=== PATIENT | male | born 1930 | race Caucasian/White ===

== ENCOUNTER 2017-11-22 10:48 | Inpatient (IN) | payer OTHER ==
--- NOTE | 2017-11-22 11:04 | PDOC ---
Attending Attestation - Resident Resident Name: EstebanValentinMarkie - ED Attending Attestation I have performed the following: I have examined & evaluated the patient, The case was reviewed & discussed with the resident, I agree w/resident's findings & plan, Exceptions are as noted - HPI HPI: 11/22/17 11:03 87y M everisaias pmhx presents by EMS for call for syncope. Upon arrival pts BGM was 177 by EMS, notes pt was a bit lethargic and not moving his R side. BP 160s sbp. upon arrival pt had R sided weakness of arms/legs, hemineglect of R side. - Physicial Exam PE: 11/22/17 11:26 Twelve-lead EKG was performed and reviewed by me. There is normal sinus rhythm with a normal rate. rate of 88 Left axis devaiation moderate volatge criteria fo LVH - Critical Care Time Total Critical Care Time: 45 Critical Care Statement: The care of this patient involved high complexity decision making to prevent further life threatening deterioration of the patient 's condition and/or to evaluate & treat vital organ system(s) failure or risk of failure. - Medical Decision Making 11/22/17 11:23 discussed with son Tom Plascencia - notes pt has been having difficulty with speech for a more than a month, and was referred to PMD by cosmo. per son, no recent surgeries, traumas the past 2 months unsure of pts meds, - will call Ayla rowland to see if we can get further info regarding his meds 11/22/17 11:41 case tanya Ochoa who is bedside evaluating the patient agree with manageent and recommends TPA CTA obtained due to suspected MCA stroke if +thrombos will transfer to [facility] NIHSS 17 11/22/17 12:15 pt was admisnstered bolus of tpa at 1148 his exam findings are improving, able to move his RUE and RLE,also word finding has improved a bit although he still has hemineglect (able to tell me number of fingers held up in front of him) case tanya cool agree with ICU admission Dr. Espinal aware, her BALL THREAD MACHINE TENDER here evaluating the pt Case discussed in detail with admitting physician including history, physical exam and ancillary studies. Admitting physician has assumed care for the patient, will follow all pending diagnostics and will complete the evaluation and treatment. NIH Stroke Scale - Last Known Well Date/Time & Onset Date Last Known Well: 11/22/17 Time Last Known Well: 10:15 - Initial Evaluation Level of consciousness: Alert Ask patient the month and their age: Answers both correctly (dysathric, unable to understand) Ask patient to open & close eyes; make fist and let go: Obeys both correctly Best gaze (horizontal eye movement): Forced deviation Visual field testing: No visual field loss (pt w hemineglect) Facial paresis (Show teeth/raise eyebrows/close eyes tight): Partial paralysis ( total or near paralysis of lower face) Motor Function: Left Arm: Normal Motor Function: Right Arm: No movement Motor Function: Left Leg: Normal (extends leg 30 degrees for 5 seconds without drift) Motor Function: Right Leg: No movement Limb Ataxia: No ataxia Sensory(Use pinprick test arms,legs,trunk,face/side to side): Severe to total sensory loss Best language (Describe picture, name items, read sentences): Severe aphasia Dysarthria (read several words): Near unintelligible or unable to speak Extinction and Inattention: Inattention or extinction bilaterally to one of the sensory modalities - Total Score NIH Stroke Scale Score: 19 tPA Exclusion Checklist 0-3hr - Time Elapsed Date last known well: 11/22/17 Time last known well: 10:15 Elaspsed time: 6 Day(s) and 22 Hour(s) and 9 Minutes - Thrombolytic Therapy Candidate Is the patient eligible for Thrombolytic Therapy?: Yes - Exclusion Criteria 0-3hr SBP greater than 185 or DBP greater than 110mmHg despite tx: No Recent IC/spinal surgery,head trauma or stroke w/in last 3mo: No Hx of previous IC hemorrhage, IC neoplasm, AVM or aneurysm: No Active internal bleeding: No Blding diathesis(low plt ct, inc PTT,INR>1.7 or use of NOAC): No Symptoms suggest subarachnoid hemorrhage: No CT demonstrates multilobar infarct(>1/3 cerebral hemiphere): No Arterial puncture at noncompressible site in previous 7 days: No Blood glucose concentration less than 50mg/dL (2.7mmol/L): No - Relative Exclusion Criteria 0-3h Life expectancy <1yr/severe co-morbid illness/WHITE SHOE EXAMINER on admit: No : No Patient/family refused: No Rapid improvement: No Stroke severity too mild: No
--- NOTE | 2017-11-22 11:04 | PDOC ---
History of Present Illness - History of Present Illness Initial Comments: 11/22/17 10:58 87 yo M with pmh who p/w R sided weakness, and R sided facial droop. 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 SBP 160 and BS 173 in route. No witnessed convulsions. Neighbors reported to EMS that patient typically ambulates w/out assistive device, but was found ambulating with walker this AM. Per EMS patient progressively weaker, upon arrival. Was able to partially ambulate following event, but now with complete R sided weakness. <Markie Orellana - Last Filed: 11/22/17 12:34> <Shubham Lambert - Last Filed: 11/22/17 12:41> - General Stated Complaint: CVA/TIA Time Seen by Provider: 11/22/17 10:51 Past History <Markie Orellana - Last Filed: 11/22/17 12:34> <Shubham Lambert - Last Filed: 11/22/17 12:41> - Past Medical History Allergies/Adverse Reactions: Allergies Allergy/AdvReac Type Severity Reaction Status Date / Time No Known Allergies Allergy Verified 11/22/17 11:14 Review of Systems - Review of Systems Comments:: 11/22/17 11:17 Unable to obtain d/t AMS. <Markie Orellana - Last Filed: 11/22/17 12:34> *Physical Exam - Physical Exam Comments: 11/22/17 11:03 GENERAL: Awake,and disoriented. HEAD: No signs of trauma, normocephalic, atraumatic EYES: PERRLA, EOMI, sclera anicteric. ENT: Pupils 3 mm BL, with corneal clouding. Auricles normal inspection, hearing grossly normal, nares patent, oropharynx clear without exudates. Moist mucosa NECK: Normal ROM, supple, no lymphadenopathy, JVD, or masses LUNGS: No distress, speaks full sentences, clear to auscultation bilaterally HEART: Regular rate and rhythm, normal S1 and S2, no murmurs, rubs or gallops, peripheral pulses normal and equal bilaterally. ABDOMEN: Soft, nontender, normoactive bowel sounds. No guarding, no rebound. No masses EXTREMITIES : Normal inspection, Normal range of motion, no edema. No clubbing or cyanosis. NEUROLOGICAL: Cranial nerves II through XII grossly intact. + Slurred speech and partial R sided/lower facial droop with drooping of R sided lateral commisure of mouth. Gait not assesed. 0/5 R sided upper motor strength. RLE 1/5 , retracts to pain. + Babinski reflex BL. LUE 4/5 and LLE 4/5. Patient neglecting left side. SKIN: Warm, Dry, normal turgor, no rashes or lesions noted <Markie Orellana - Last Filed: 11/22/17 12:34> - Vital Signs Last Vital Signs Temp Pulse Resp BP Pulse Ox 85 18 178/88 100 11/22/17 12:39 11/22/17 12:39 11/22/17 12:39 11/22/17 12:39 <Shubham Lambert - Last Filed: 11/22/17 12:41> NIH Stroke Scale - Last Known Well Date/Time & Onset Date Last Known Well: 11/22/17 Time Last Known Well: 10:15 - Initial Evaluation Level of consciousness: Alert Ask patient the month and their age: Answers both correctly Ask patient to open & close eyes; make fist and let go: Obeys both correctly Best gaze (horizontal eye movement): Forced deviation Visual field testing: No visual field loss (Patient has hemineglect) Facial paresis (Show teeth/raise eyebrows/close eyes tight): Partial paralysis ( total or near paralysis of lower face) Motor Function: Left Arm: Normal Motor Function: Right Arm: No movement Motor Function: Left Leg: Normal (extends leg 30 degrees for 5 seconds without drift) Motor Function: Right Leg: No movement Limb Ataxia: No ataxia Sensory(Use pinprick test arms,legs,trunk,face/side to side): Severe to total sensory loss Best language (Describe picture, name items, read sentences): Severe aphasia Dysarthria (read several words): Near unintelligible or unable to speak Extinction and Inattention: Inattention or extinction bilaterally to one of the sensory modalities - Total Score NIH Stroke Scale Score: 19 <Markie Orellana - Last Filed: 11/22/17 12:34> tPA Exclusion Checklist 0-3hr - Time Elapsed Date last known well: 11/22/17 Time last known well: 10:15 Elaspsed time: Day(s) and 2 Hour(s) and 19 Minutes - Thrombolytic Therapy Candidate Is the patient eligible for Thrombolytic Therapy?: Yes - Exclusion Criteria 0-3hr SBP greater than 185 or DBP greater than 110mmHg despite tx: No Recent IC/spinal surgery,head trauma or stroke w/in last 3mo: No Hx of previous IC hemorrhage, IC neoplasm, AVM or aneurysm: No Active internal bleeding: No Blding diathesis(low plt ct, inc PTT,INR>1.7 or use of NOAC): No Symptoms suggest subarachnoid hemorrhage: No CT demonstrates multilobar infarct(>1/3 cerebral hemiphere): No Arterial puncture at noncompressible site in previous 7 days: No Blood glucose concentration less than 50mg/dL (2.7mmol/L): No - Relative Exclusion Criteria 0-3h Life expectancy <1yr/severe co-morbid illness/BOARD MIXER TENDER on admit: No : No Patient/family refused: No Rapid improvement: No Stroke severity too mild: No Recent acute IA (w/in previous 3 months): No Seizure at onset with postictal residual neuro impairments: No Major surgery or serious trauma w/in previous 14 days: No Recent GI or hemorrhage (w/in previous 21 days): No <Markie Orellana - Last Filed: 11/22/17 12:34> Critical Care Time/MDM Note - Medical Decision Making Note: 11/22/17 11:05 87 yo M with pmh who BIBA R sided weakness, and R sided facial droop at approximately 1015 following syncopal event at around 1015 ([id number] call placed ). SBP 160 and BS 173 in route. No witnessed convulsions. Now with complete R sided hemiplegia, facial droop, and slurred speech. BP now 143/83. 11/22/17 11:19 ED Course: Per Medical Records at [facility]. 06/02-06/05/17 R hip surgery s /p fall R hip femoral neck fracture/ R hip hemiplasty at [facility]. Was treated with ASA, APAP, Morphine. PMD Dr. Archana Escalante 11/22/17 11:39 Dr. Kylie MC ([facility]) to come to ED. 11/22/17 11:42 NIHSS 19 11/22/17 11:48 Patient son and neighbor who witnessed event now at bedside. Pt. son states that patient has become progressively weak and has poor primary care f/u and consistently refuses medical care. Recently seen in opthamologist office for left eye cataract (11-13-17). Pt. neighbor states that patient became dysarthric with blank gaze and not responsive to questions while eating [employer] at approximately 1005 AM. Patient started slouching to right while sitting. Per Dr. Ochoa patient is candidate for tpa. 55 mg (0.9/kg) administered. 11/22/17 12:22 Patient clinical status improved. RUE and RLE now 3/5 and patient speech more coherent and able to follow specific commands, and write his name on paper. 11/22/17 12:31 Patient accepted to ICU. Dr. Jc. <Markie Orellana - Last Filed: 11/22/17 12:34> Discharge Disposition <Markie Orellana - Last Filed: 11/22/17 12:34> - Discharge Dispostion Decision to Admit order: Yes <Shubham Lambert - Last Filed: 11/22/17 12:41> - Diagnosis Cerebrovascular accident (CVA) Qualifiers: CVA mechanism: unspecified Qualified Code(s): I63.9 - Cerebral infarction, unspecified - Discharge Dispostion Condition at time of disposition: Critical
[2017-11-22 11:08] LABS: BASO % 0.4 % (0-2.0); HEMATOCRIT 43.4 % (35.4-49); HEMOGLOBIN 14.2 GM/dL (11.7-16.9); LYMPH % 30.5 % (8-40); MCH 30.8 pg (25.7-33.7); MCHC 32.7 g/dl (32.0-35.9); MEAN CELL VOLUME 94.2 fl (80-96); MEAN PLT VOLUME 8.3 fl (7.5-11.1); MONO % 5.5 % (3.8-10.2); NEUT % 62.6 % (42.8-82.8); PLATELET COUNT 274 K/MM3 (134-434); RBC 4.61 M/mm3 (4.00-5.60); RDW 14.9 % (11.9-15.9); WHITE BLOOD COUNT 6.7 K/mm3 (4.0-10.0)
[2017-11-22 11:12] LABS: INR 1.06 (0.82-1.09)
[2017-11-22] MEDS ORDERED: ALTEPLASE 100MG 100 MG IVPB ONE (11:32)
[2017-11-22] MEDS ORDERED: ALTEPLASE 100 MG VIAL IVPB STA ×2 (11:34→12:02)
[2017-11-22 11:35] LABS: ALBUMIN 3.3 g/dl (3.4-5.0); ALK PHOS 136 U/L (45-117); ANION GAP 12 (8-16); BILIRUBIN,TOTAL 0.5 mg/dL (0.2-1.0); BLOOD UREA NITROGEN 19 mg/dL (7-18); CHLORIDE 111 mmol/L (98-107); CHOLESTEROL 161 mg/dL (50-200); CO2 22 mmol/L (21-32); CREATININE 1.3 mg/dL (0.7-1.3); GLUCOSE,RANDOM 158 mg/dL (74-106); HDL CHOLESTEROL 64 mg/dL (40-60); POTASSIUM 3.8 mmol/L (3.5-5.1); SGOT/AST 16 U/L (15-37); SGPT/ALT 18 U/L (12-78); SODIUM 145 mmol/L (136-145); TOT PROT 6.6 g/dl (6.4-8.2); TRIGLYCERIDES 82 mg/dL (35-160)
[2017-11-22] MEDS: SODIUM CHLORIDE 1,000 ML IV SCH (13:00)
[2017-11-22 13:24] LABS: URINE APPEARANCE CLOUDY; URINE BILIRUBIN NEGATIVE (<2.0 mg/dL); URINE COLOR DKYELLOW; URINE GLUCOSE (UA) NEGATIVE (NEGATIVE); URINE KETONE NEGATIVE (NEGATIVE); URINE NITRITE NEGATIVE (NEGATIVE); URINE UROBILINOGEN NEGATIVE mg/dL (0.2-1.0)
[2017-11-22 13:29] LABS: URINE LEUK ESTERASE 3+ (NEGATIVE); URINE PROTEIN 2+ (NEGATIVE)
[2017-11-22 13:31] LABS: EPI CELLS RARE /HPF (FEW); URINE BACTERIA MODERATE /hpf (NONE SEEN)
--- NOTE | 2017-11-22 13:44 | CONSULT ---
Consultation: ICUL CONSULT HISTORY OF PRESENT ILLNESS: 87yo M with unknown PMHx who was BIBEMS due to acute onset neurological deficits. He was at a restaurant w/ his neighbor who stated all of a sudden the patient started "looking funny". He was slumped over and making nonsensical speech, prompting 911 call. He progressively developed RUE and RLE weakness with a R sided neglect and worsening R facial droop. On arrival his NIHSS was 19 , and BPs were in 160s. Head CT shows L sided occipital and thalamic infarcts ( likely old). CTA shows no obvious embolus. He received tPA at 61min after TLSW Patient examined in the ER, still talking nonsensical but much improvement in strength and gaze palsy. PMHx: Unknown (patient does not see doctors) Nonsmoker Nonalcoholic REVIEW OF SYSTEMS: Unable to obtain secondary to mental status PHYSICAL EXAMINATION Vital Signs Period Temp Pulse Resp BP Sys/Kay Pulse Ox Last 24 Hr 76-85 16-24 143-178/83-104 0-100 GEN: Awake alert, oriented x1 to person HEENT: PERRLA, gaze is deviating to the Left, able to correct. CV: S1, S2, RRR, no murmur LUNG: CTABL ABD: Soft, NT, ND MSK: No edema, no erythema NEURO: PERRLA, + L gaze deviation, able to correct +R facial droop RUE 4/5, LUE 5/5. Lower extremity 5/5 ASSESSMENT/PLAN: 87yo M with unknown PMHx who was BIBEMS due to acute onset R sided hemiparesis, R facial droop, and R hemineglect. Suspected CVA, treated w/ tPA with improvement # Suspected L sided CVA -- Pt arrived w/ R sided weakness, received tPA w/ significant improvement. Still has some R gaze palsy and nonsensical speech. Patient has no known PMHx, but likely has underlying HTN, admitting BPs were in 160s. After tPA, BPs q1hr, keep permissive HTN until 185/110 for 24 hrs. EKG shows no Afib. Obtain echo to r/o embolus. Carotid dopplers. ASA tomorrow. Start statin. Repeat CT head in 12 hrs # FEN/Ppx -- No IVF, NPO, SCDs # Dispo -- Admit to ICU to monitor BPs Stan Castanon MD PGY1 ICU Resident Visit type - Emergency Visit Emergency Visit: Yes ED Registration Date: 11/22/17 Care time: The patient presented to the Emergency Department on the above date and was hospitalized for further evaluation of their emergent condition. - New Patient This patient is new to me today: Yes Date on this admission: 11/22/17 - Critical Care Critical Care patient: Yes Total Critical Care Time (in minutes): 45 Critical Care Statement: The care of this patient involved high complexity decision making to prevent further life threatening deterioration of the patient 's condition and/or to evaluate & treat vital organ system(s) failure or risk of failure.
--- NOTE | 2017-11-22 15:05 | HP ---
Admitting History and Physical - Admission History of Present Illness: 11/22/17 10:58 87 yo M with pmh who p/w R sided weakness, and R sided facial droop. 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 SBP 160 and BS 173 in route. No witnessed convulsions. Neighbors reported to EMS that patient typically ambulates w/out assistive device, but was found ambulating with walker this AM. Per EMS patient progressively weaker, upon arrival. Was able to partially ambulate following event, but now with complete R sided weakness. History Source: Family Member, Friend, Medical Record Limitations to Obtaining History: Clinical Condition - Past Surgical History Past Surgical History: Yes: Joint Replacement - Smoking History Smoking history: Unknown if ever smoked Have you smoked in the past 12 months: No - Alcohol/Substance Use Hx Alcohol Use: No - Social History Usual Living Arrangement: Yes: Alone ADL: Support Services History of Recent Travel: No Home Medications - Allergies Allergies/Adverse Reactions: Allergies Allergy/AdvReac Type Severity Reaction Status Date / Time No Known Allergies Allergy Verified 11/22/17 11:14 - Home Medications Home Medications: Ambulatory Orders Unobtainable 11/22/17 Physical Examination Vital Signs: Vital Signs Temperature Pulse Rate 76 11/22/17 13:47 Respiratory Rate 16 11/22/17 13:47 Blood Pressure 164/83 11/22/17 13:47 O2 Sat by Pulse Oximetry (%) 100 11/22/17 13:47 Labs: CBC, BMP 11/22/17 10:58 11/22/17 10:58
--- NOTE | 2017-11-22 15:41 | PN ---
Teaching Attending Note Name of Resident: Stan Castanon ATTENDING PHYSICIAN STATEMENT I saw and evaluated the patient. I reviewed the resident's note and discussed the case with the resident. I agree with the resident's findings and plan as documented. SUBJECTIVE: 87 M, admitted via the ER due to acute onset of AMS and change in speech. Apparently he was with his neighbor at a restaurant and his neighbor noted he "looked funny" and his his speech became unintelligible and called 911. [address] head revealed old infarcts but no new acute process. Do to progressive Right sided weakness and facial droop and a HIHSS of 19, he received tPA. Apparent improvement in his neurologic exam by examining providers. CXR: Questionable infiltrate/atelectasis RUL Intake & Output 11/19/17 11/20/17 11/21/17 11/22/17 23:59 23:59 23:59 23:59 Weight 134 lb 7.712 oz Last Vital Signs Temp Pulse Resp BP Pulse Ox 97.9 F 75 16 164/98 100 11/22/17 15:25 11/22/17 15:25 11/22/17 15:25 11/22/17 15:25 11/22/17 15:25 Active Medications Sodium Chloride (Normal Saline -) 1,000 mls @ 42 mls/hr IV ASDIR KIMBERLY Last Admin: 11/22/17 13:00 Dose: 42 mls/hr GENERAL: Awake, NAD HEAD: No signs of trauma, normocephalic, atraumatic EYES: PERRLA, EOMI, sclera anicteric. ENT: Pupils 3 mm equal, corneal haziness NECK: Normal ROM, supple, no lymphadenopathy, JVD, or masses LUNGS: Clear to auscultation bilaterally HEART: Irregular ABDOMEN: Soft, nontender, normoactive bowel sounds. No guarding, no rebound. No masses EXTREMITIES : Normal inspection, Normal range of motion, no edema. No clubbing or cyanosis. NEUROLOGICAL: Mildly dysarthric speech, right lower facial droop, right weakness SKIN: Warm, Dry, normal turgor, no rashes or lesions noted Laboratory Results - last 24 hr 11/22/17 11/22/17 11/22/17 10:58 10:58 10:58 WBC 6.7 RBC 4.61 Hgb 14.2 Hct 43.4 MCV 94.2 MCH 30.8 MCHC 32.7 RDW 14.9 Plt Count 274 MPV 8.3 Neutrophils % 62.6 Lymphocytes % 30.5 Monocytes % 5.5 Eosinophils % 1.0 Basophils % 0.4 Nucleated RBC % 0 PT with INR 12.00 INR 1.06 Sodium 145 Potassium 3.8 Chloride 111 H Carbon Dioxide 22 Anion Gap 12 BUN 19 H Creatinine 1.3 Creat Clearance w eGFR 52.22 Random Glucose 158 H Calcium 9.0 Total Bilirubin 0.5 AST 16 ALT 18 Alkaline Phosphatase 136 H Creatine Kinase 33 L Troponin I < 0.02 Total Protein 6.6 Albumin 3.3 L Triglycerides 82 Cholesterol 161 Total LDL Cholesterol 85 HDL Cholesterol 64 H Urine Color Urine Appearance Urine pH Ur Specific [place] Urine Protein Urine Glucose (UA) Urine Ketones Urine Blood Urine Nitrite Urine Bilirubin Urine Urobilinogen Ur Leukocyte Esterase Urine WBC (Auto) Urine RBC (Auto) Ur Epithelial Cells Urine Bacteria Blood Type Antibody Screen 11/22/17 11/22/17 11:20 13:00 WBC RBC Hgb Hct MCV MCH MCHC RDW Plt Count MPV Neutrophils % Lymphocytes % Monocytes % Eosinophils % Basophils % Nucleated RBC % PT with INR INR Sodium Potassium Chloride Carbon Dioxide Anion Gap BUN Creatinine Creat Clearance w eGFR Random Glucose Calcium Total Bilirubin AST ALT Alkaline Phosphatase Creatine Kinase Troponin I Total Protein Albumin Triglycerides Cholesterol Total LDL Cholesterol HDL Cholesterol Urine Color Dkyellow Urine Appearance Cloudy Urine pH 5.0 Ur Specific [place] 1.040 H Urine Protein 2+ H Urine Glucose (UA) Negative Urine Ketones Negative Urine Blood 3+ H Urine Nitrite Negative Urine Bilirubin Negative Urine Urobilinogen Negative Ur Leukocyte Esterase 3+ H Urine WBC (Auto) 73 Urine RBC (Auto) 1509 Ur Epithelial Cells Rare Urine Bacteria Moderate Blood Type O POSITIVE Antibody Screen Negative ASSESSMENT/PLAN: Acute Left CVA, S/P tPA HTN AFib Prosthetic Valve Monitor for bleeding HOB elevation SCDs No arterial punctures ASA to be started Statin ECHO Carotid dopplers Follow CXR Monitor off ABX for now Neurology evaluation Blood Pressure goal in first 24 hours: Maintain below 180/105. ICU monitoring Dr Snowden Critical care time spent in reviewing chart, evaluating patient and formulating plan - 36 minutes.
[2017-11-22 16:09] VITALS: BMI 27.3
--- NOTE | 2017-11-22 16:18 | CON.NEURO ---
Consult - Past Surgical History Past Surgical History: Yes: Joint Replacement - Alcohol/Substance Use Hx Alcohol Use: No - Smoking History Smoking history: Unknown if ever smoked Have you smoked in the past 12 months: No - Social History ADL: Support Services History of Recent Travel: No Home Medications - Allergies Allergies/Adverse Reactions: Allergies Allergy/AdvReac Type Severity Reaction Status Date / Time No Known Allergies Allergy Verified 11/22/17 11:14 - Home Medications Home Medications: Ambulatory Orders Unobtainable 11/22/17 Physical Exam-Neuro Vital Signs: Vital Signs Temperature 97.9 F 11/22/17 15:25 Pulse Rate 75 11/22/17 15:25 Respiratory Rate 16 11/22/17 15:25 Blood Pressure 164/98 11/22/17 15:25 O2 Sat by Pulse Oximetry (%) 100 11/22/17 15:25 Labs: CBC, BMP 11/22/17 10:58 11/22/17 10:58 INR, PTT INR 1.06 (0.82-1.09) 11/22/17 10:58 Assessment/Plan cc sudden onset right side hemiparesis, neglect and aphasia HPI 87 year old male was eating at [employer] and was found to have aphasia, and right sided hemiparesis around 10.00 am and Patient was immediately brought to hospital. He has ct scan was normal. NIH score as 19, BP wa sin 160s . Patient blood sugar was 173. He has cta of brain was unremarkkable. Patient as started on tpa at 11.50 am. I spent 30 minute doing critical care. He has history of Joint replacement, He was not on any anticoagulation . He did not have any recent surgery or brain injury , reviewed in chart NKDA Neurological Examination bp 178/88 Alert able to follow simple command eyes are conjugate deviated to left side, there is right side hemineglect , right sided completely paralysis right facial palsy ct head unremarkable Assessment- Large left mca stroke with aphasia , conjugate eye deviation and hemiparesis, nih score is 19, failed swallowing evaluation Plan-- TPA was given on 11.50, - ICU care, hold antiplatelet for 24 hour - aspirin can be started tomorrow -Statin can be started -repeat ct head tomorrow - vitals as per ICU team - Carotid ultrasound, echo -Neurocheck - repeat ct head, if any new focal neurological symptoms or sign -prognosis is guarded dvt prophylaxis, speech evaluation, PT Thanking you so much Barrett Ochoa MD
[2017-11-22] MEDS: ATORVASTATIN CA 80 MG TABLET (FP) PO SCH (21:27)
[2017-11-23 06:42] LABS: HEMATOCRIT 39.3 % (35.4-49); HEMOGLOBIN 13.3 GM/dL (11.7-16.9); MCHC 33.7 g/dl (32.0-35.9); MEAN CELL VOLUME 91.8 fl (80-96); MEAN PLT VOLUME 8.3 fl (7.5-11.1); PLATELET COUNT 264 K/MM3 (134-434); RBC 4.28 M/mm3 (4.00-5.60); RDW 14.5 % (11.9-15.9); WHITE BLOOD COUNT 7.5 K/mm3 (4.0-10.0)
[2017-11-23 07:01] LABS: INR 1.05 (0.82-1.09); PROTHROMBIN TIME (PATIENT) 11.9 SEC (9.7-13.0)
[2017-11-23 07:17] LABS: ALBUMIN 2.9 g/dl (3.4-5.0); ANION GAP 4 (8-16); BLOOD UREA NITROGEN 13 mg/dL (7-18); CALCIUM 8.4 mg/dL (8.5-10.1); CHLORIDE 112 mmol/L (98-107); CO2 27 mmol/L (21-32); GLUCOSE,RANDOM 70 mg/dL (74-106); POTASSIUM 4.1 mmol/L (3.5-5.1); SODIUM 143 mmol/L (136-145)
[2017-11-23 07:30] LABS: ALK PHOS 117 U/L (45-117); BILIRUBIN,TOTAL 0.7 mg/dL (0.2-1.0); MAGNESIUM 2.1 mg/dL (1.8-2.4); PHOSPHOROUS 3.8 mg/dL (2.5-4.9); SGOT/AST 15 U/L (15-37); SGPT/ALT 14 U/L (12-78); TOT PROT 5.8 g/dl (6.4-8.2)
[2017-11-23 07:41] LABS: CHOLESTEROL 140 mg/dL (50-200); HDL CHOLESTEROL 57 mg/dL (40-60); TRIGLYCERIDES 84 mg/dL (35-160)
--- NOTE | 2017-11-23 08:53 | EKG ---
Test Reason : Blood Pressure : / mmHG Vent. Rate : 088 BPM Atrial Rate : 088 BPM P-R Int : 150 ms QRS Dur : 082 ms QT Int : 358 ms P-R-T Axes : 044 -32 026 degrees QTc Int : 433 ms SINUS RHYTHM WITH PREMATURE ATRIAL COMPLEXES LEFT AXIS DEVIATION MODERATE VOLTAGE CRITERIA FOR LVH, MAY BE NORMAL VARIANT ABNORMAL ECG NO PREVIOUS ECGS AVAILABLE Confirmed by MYRANDA MCKEON, RUMA ([id number]) on 11/23/2017 8:52:54 AM Referred By: Confirmed By:RUMA WHITMORE MD
[2017-11-23] MEDS ORDERED: ASPIRIN 81 MG CHEWABLE TABLETS PO SCH ×2 (10:00→12:00)
[2017-11-23] MEDS: SODIUM CHLORIDE 1,000 ML IV SCH (12:30)
[2017-11-23] MEDS: ASPIRIN 81 MG CHEWABLE TABLETS PO SCH (12:51)
--- NOTE | 2017-11-23 13:33 | PN ---
Progress Note (short form) - Note Progress Note: 87 year old male was eating at [employer] and was found to have aphasia, and right sided hemiparesis around 10.00 am on november 22, 2017 and Patient was immediately brought to hospital. He has ct scan was normal. NIH score as 19, BP wa sin 160s . Patient blood sugar was 173. He has cta of brain was unremarkkable. Patient as started on tpa at 11.50 am. Patient has improved after iv tpa. Neurological Examination bp 170/94 Alert able to follow simple command eomi, pupils reactive Right sided grade 4 in both upper and lower extremity. 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 Thanking you so much Barrett Ochoa MD
--- NOTE | 2017-11-23 13:46 | PN ---
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 Vital Signs Period Temp Pulse Resp BP Sys/Kay Pulse Ox Last 24 Hr 97.2 F-98.2 F 59-84 7-24 140-184/80-105 100-100 Intake & Output 11/20/17 11/21/17 11/22/17 11/23/17 23:59 23:59 23:59 23:59 Intake Total 168 336 Output Total 1200 200 Balance -1032 136 Weight 154 lb face minimal right labial droop speech garbled but not slurred follows SIMPLE COMMAND - neckk supple heart s1/s2v reg lungs clear bilat abd soft non tender ext moves all / FROM / no significant motor deficit CBC, BMP 11/23/17 05:30 11/23/17 05:[address] head done on was unchanged from 11/22/17 carotid ultrasound is pending Microbiology 11/22/17 13:15 Urine - Urine - Catheterized Urine Culture - Preliminary Lactose Fermenting Neg Bacilli Active Medications Aspirin (Asa -) [address] [facility] Last Admin: 11/23/17 12:51 Dose: 81 mg Atorvastatin Calcium (Lipitor -) 80 mg PO HS [facility] Last Admin: 11/22/17 21:27 Dose: 80 mg Sodium Chloride (Normal Saline -) 1,000 mls @ 42 mls/hr IV ASDIR 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
[2017-11-23] MEDS: ATORVASTATIN CA 80 MG TABLET (FP) PO SCH (21:34)
--- NOTE | 2017-11-24 09:56 | PN ---
Progress Note (short form) - Note Progress Note: PULMONARY/CCM Pt seen and examined in the ICU. Still some aphasia but improving. Denies headache, nausea or vomiting. Vital Signs Period Temp Pulse Resp BP Sys/Kay Pulse Ox Last 24 Hr 98.2 F-98.8 F 55-78 16-22 127-170/61-93 100 Intake & Output 11/21/17 11/22/17 11/23/17 11/24/17 23:59 23:59 23:59 23:59 Intake Total 168 1218 500 Output Total 1200 950 370 Balance -1032 268 130 Weight 69.853 kg 69.853 kg 40.1 kg Gen: mild word finding Heart: RRR Lung: decreased breath sounds at the bases Abd: soft, nontender Ext: no edema CBC, BMP 11/23/17 05:30 11/23/17 05:30 Active Medications Aspirin (Asa -) 81 mg PO DAILY [facility] Last Admin: 11/23/17 12:51 Dose: 81 mg Atorvastatin Calcium (Lipitor -) 80 mg PO HS [facility] Last Admin: 11/23/17 21:34 Dose: 80 mg Sodium Chloride (Normal Saline -) 1,000 mls @ 42 mls/hr IV [facility] Last Admin: 11/23/17 12:30 Dose: 42 mls/hr A/P Acute CVA s/p tPA - neuro checks - MRI brain - echocardiogram - statin - PO as tolerated - can d/c IVF - rehab/PT - can monitor on telemetry
[2017-11-24] MEDS: ASPIRIN 81 MG CHEWABLE TABLETS PO SCH (10:06)
--- NOTE | 2017-11-24 10:13 | PN ---
Progress Note (short form) - Note Progress Note: 87 year old male was eating at [employer] and was found to have aphasia, and right sided hemiparesis around 10.00 am on november 22, 2017 and Patient was immediately brought to hospital. He has ct scan was normal. NIH score as 19, BP wa sin 160s . Patient blood sugar was 173. He has cta of brain was unremarkkable. Patient was given tpa in ED. No new complain, he was made to walk today Neurological Examination bp 170/94 Alert able to follow simple command eomi, pupils reactive Right sided grade 4 in both upper and lower extremity. 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 Thanking you so much Barrett Ochoa MD
--- NOTE | 2017-11-24 13:53 | PN ---
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 Vital Signs Period Temp Pulse Resp BP Sys/Kay Pulse Ox Last 24 Hr 97.8 F-98.8 F 55-74 18-22 127-155/61-90 100 Intake & Output 11/21/17 11/22/17 11/23/17 11/24/17 23:59 23:59 23:59 23:59 Intake Total 168 1218 500 Output Total 1200 950 370 Balance -1032 268 130 Weight 154 lb 154 lb 88 lb 6.486 oz face minimal right labial droop speech clear / slow, episodes of garbled speech follows SIMPLE COMMAND - neckk supple heart s1/s2v reg lungs clear bilat abd soft non tender ext moves all / FROM / no significant motor deficit CBC, BMP 11/23/17 05:30 11/23/17 05:[address] head done on was unchanged from 11/22/17 carotid ultrasound is pending Microbiology 11/22/17 13:15 Urine - Urine - Catheterized Urine Culture - Preliminary Lactose Fermenting Neg Bacilli Active Medications Aspirin (Asa -) 81 mg PO DAILY [facility] Last Admin: 11/24/17 10:06 Dose: 81 mg Atorvastatin Calcium (Lipitor -) 80 mg PO HS [facility] Last Admin: 11/23/17 21:34 Dose: 80 mg Assessment- # CVA 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
[2017-11-25 06:42] LABS: BASO % 0.3 % (0-2.0); HEMATOCRIT 39.4 % (35.4-49); HEMOGLOBIN 13.4 GM/dL (11.7-16.9); LYMPH % 38.1 % (8-40); MCHC 33.9 g/dl (32.0-35.9); MEAN CELL VOLUME 91.4 fl (80-96); MEAN PLT VOLUME 8.1 fl (7.5-11.1); MONO % 7.2 % (3.8-10.2); NEUT % 47.4 % (42.8-82.8); PLATELET COUNT 265 K/MM3 (134-434); RBC 4.31 M/mm3 (4.00-5.60); RDW 14.1 % (11.9-15.9); WHITE BLOOD COUNT 6.7 K/mm3 (4.0-10.0)
[2017-11-25 07:11] LABS: CHLORIDE 112 mmol/L (98-107); POTASSIUM 4.4 mmol/L (3.5-5.1); SODIUM 145 mmol/L (136-145)
[2017-11-25 07:19] LABS: ALBUMIN 2.9 g/dl (3.4-5.0); ALK PHOS 112 U/L (45-117); ANION GAP 5 (8-16); BILIRUBIN,TOTAL 0.5 mg/dL (0.2-1.0); BLOOD UREA NITROGEN 21 mg/dL (7-18); CALCIUM 8.4 mg/dL (8.5-10.1); CO2 28 mmol/L (21-32); GLUCOSE,RANDOM 79 mg/dL (74-106); MAGNESIUM 2.3 mg/dL (1.8-2.4); PHOSPHOROUS 3.4 mg/dL (2.5-4.9); SGOT/AST 11 U/L (15-37); SGPT/ALT 12 U/L (12-78); TOT PROT 5.8 g/dl (6.4-8.2)
--- NOTE | 2017-11-25 09:14 | PN ---
Progress Note (short form) - Note Progress Note: PULMONARY/CCM Pt seen and examined in the ICU. Still with word finding/aphasia. Tolerating PO. Denies headache, nausea or vomiting. Vital Signs Period Temp Pulse Resp BP Sys/Kay Pulse Ox Last 24 Hr 97.8 F-98.3 F 64-84 18-24 129-157/68-98 100-100 Intake & Output 11/22/17 11/23/17 11/24/17 11/25/17 23:59 23:59 23:59 23:59 Intake Total 168 1218 1260 Output Total 1200 950 970 Balance -1032 268 290 Weight 69.853 kg 69.853 kg 40.1 kg Gen: mild word finding Heart: RRR Lung: decreased breath sounds at the bases Abd: soft, nontender Ext: no edema CBC, BMP 11/25/17 05:40 11/25/17 05:40 A/P Acute CVA s/p tPA HTN - neuro checks - MRI brain - echocardiogram - statin - PO as tolerated - rehab/PT - telemetry monitoring
--- NOTE | 2017-11-25 11:22 | PN ---
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 Vital Signs Period Temp Pulse Resp BP Sys/Aky Pulse Ox Last 24 Hr 98.0 F-98.3 F 64-84 18-24 129-157/68-98 100-100 Intake & Output 11/22/17 11/23/17 11/24/17 11/25/17 23:59 23:59 23:59 23:59 Intake Total 168 1218 1260 Output Total 1200 950 970 Balance -1032 268 290 Weight 154 lb 154 lb 88 lb 6.486 oz face minimal right labial droop speech clear / slow, episodes of garbled speech follows SIMPLE COMMAND - neckk supple heart s1/s2v reg lungs clear bilat abd soft non tender ext moves all / FROM / no significant motor deficit CBC, BMP 11/25/17 05:40 11/25/17 05:[address] head done on was unchanged from 11/22/17 carotid ultrasound is pending Microbiology 11/22/17 13:15 Urine - Urine - Catheterized Urine Culture - Final Escherichia Coli Aspirin (Asa -) 81 mg PO DAILY [facility] Last Admin: 11/24/17 10:06 Dose: 81 mg Atorvastatin Calcium (Lipitor -) 80 mg PO HS [facility] Last Admin: 11/23/17 21:34 Dose: 80 mg Assessment- # CVA 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
--- NOTE | 2017-11-25 16:57 | PN ---
Progress Note (short form) - Note Progress Note: 87 year old male developed sudden onset aphasia and right sided hemiparesis around 10.00 am on november 22, 2017 and Patient was immediately brought to hospital. He has ct scan was normal. NIH score was 19, B. He has cta of brain was unremarkkable. Patient was given tpa in ED. His strength seems to have improved and speech is better. He still having trouble with word findings difficulty Neurological Examination = Alert able to follow simple command eomi, pupils reactive , riht sided hemianopsia Right sided grade 4 in both upper and lower extremity. 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
--- NOTE | 2017-11-26 09:38 | CONSULT ---
Admitting History and Physical - Primary Care Physician PCP: Archana Espinal I - Admission History of Present Illness: 87yo M with unknown PMHx who was BIBEMS due to acute onset neurological deficits. He was at a restaurant w/ his neighbor who stated all of a sudden the patient started "looking funny". He was slumped over and making nonsensical speech, prompting 911 call. He progressively developed RUE and RLE weakness with a R sided neglect and worsening R facial droop. CT head revealed old infarcts but no new acute process. Do to progressive Right sided weakness and facial droop and a HIHSS of 19, he received tPA. 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 He also told me that he did have a h/o word finding difficulty before this admission but denied known h/o of a stroke. Pt is left hand dominant. History Source: Patient, Medical Record Limitations to Obtaining History: Clinical Condition, Other (Expressive Aphasia) - Past Surgical History Past Surgical History: Yes: Joint Replacement - Smoking History Smoking history: Unknown if ever smoked Have you smoked in the past 12 months: No - Alcohol/Substance Use Hx Alcohol Use: No - Social History ADL: Support Services History of Recent Travel: No History - Admission Reason For Visit: CVA - Diagnostics X-ray: Report Reviewed CT Scan: Report Reviewed MRI: Report Reviewed - General Mental Status: Alert and Oriented, Awake and Alert, Able to Follow Commands Attention: Intact Ability to Follow Directions: Good (Pt follows 2 step commands but not complex 3 step) Head/Neck Control: WFL - Hearing Hearing: Functional Speech Evaluation - Communication Primary Language: [place] Communication: Yes: Aphasia Oral Expression Ability: Yes: Moderate Impairment - Speech Production Apraxia: No Intelligibility: Yes: WNL - Speech Characteristics Voice Loudness: Normal Voice Pitch: Yes: Normal Voice Phonatory-based Quality: Yes: Normal Speech Pattern: Impaired Nasal Resonance: Normal Articulation: Yes: Precise - Language/Auditory Comprehension Follows: Yes: 2 Stage Simple Commands Observation: Able to respond to yes/no queries: Yes, Yes/No Confusion: No, Comprehends Conversational Speech: Yes, Benefits from Slow Speech: Yes, Benefits from Repetiton: Yes - Language/Verbal Expression Aphasia: Yes: Anomia Able to Respond to Simple Queries: Yes: Mildly Impaired, Moderately Impaired Able to Communicate Wants and Needs: Yes: Mildly Impaired, Moderately Impaired Functional Communication Status: Yes: Moderately Impaired Aware of Errors: Yes Attempts to Correct Errors: Yes Written Expression: Writing is poorly functional, unable to write his name. Errors in copying his name, but he can write letters. 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 Social speech and simple sentence production is much improved,per EMR. With cues, able to learn to circumlocute to get his point across. Poor confrontation naming, difficulty naming common objects. Limited ability to remember the word, eg spoon,after 1 minute with distraction. Reading Comprehension: Unable to reading single words,eg HELLO, with suspected right hemianopsia contributing. Attention: Yes: Intact - Memory/Perception exterminator Memory: Yes: WNL Short Term Memory: Yes: WNL Hemaniopsia: Yes: Right (noted during reading tasks. Unaware of right side of word eg read SUNDAY for Mu) - Swallow Evaluation/Bedside Assessment Current Nutritional Intake: Regular Oral Secretions: Yes: WFL Dentition: Yes: Adequate Facial Symmetry at Rest: Symmetrical Facial Symmetry on Retraction: Symmetrical Facial Movement: Controlled Sensation: Normal Against Resistance Opening: Normal Against Resistance Closing: Normal Pucker Lips: Normal Smile: Normal Lingual Movement: Normal, Symmetric Lingual Speed of Movement: Normal Lingual Movement Strgth Against Opposition: Normal Lingual Movement Characteristics: Normal Velopharyngeal Movement: Normal Laryngeal Elevation: WFL Laryngeal Movement: Able to Palpate Rate of Intake: WFL Bolus Size: WFL Labial Seal: WFL Chewing: WFL Oral Prep Time: WFL A-P Transit: WFL Pocketing: None Timing of Swallow: WFL Coughing/Throat Clear: No Change in Voice: No Recommendations - Speech Evaluation, Impression/Plan 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 Reading/Writing non functional at present.Pt seems fully oriented and I suspect his memory/reasoning is quite functional. No dysarthria/dysphagia. Excellent rehab candidate. Recommended Therapies: Language Recommended Frequency for Therapy: 3-5 x Week - Disposition Discharge to: Rehabilitation Center - Dysphagia Impressions/Plan Swallowing Skills: WFL Dysphagia Impressions: No Impairment *Silent aspiration: cannot be R/O at bedside - Recommendations Diet Consistency: Regular Medication Administration: Whole with water Liquids: Thin Liquids
--- NOTE | 2017-11-26 10:53 | PN ---
Progress Note (short form) - Note Progress Note: patient seen and examined in ICU sitting up in bed follows commands speech improved / short sentences was able to read short ( 3 word) sentences, unclear if understands what he is reading not oriented to time or place moves all extremities front desk equal strength Vital Signs Period Temp Pulse Resp BP Sys/Kay Pulse Ox Last 24 Hr 98.0 F-98.7 F 65-78 15-22 125-152/68-94 97 Intake & Output 11/23/17 11/24/17 11/25/17 11/26/17 23:59 23:59 23:59 23:59 Intake Total 1218 1260 240 240 Output Total 246 249 4673 400 Balance 268 290 -860 -160 Weight 154 lb 88 lb 6.486 oz 162 lb 1.6 oz face minimal right labial droop /symmetrical with speech speech clear / slow follows SIMPLE COMMAND - neck supple heart s1/s2v reg lungs clear bilat abd soft non tender ext moves all / FROM / no significant motor deficit CBC, BMP 11/25/17 05:40 11/25/17 05:[address] head done on was unchanged from 11/22/17 Microbiology 11/22/17 13:15 Urine - Urine - Catheterized Urine Culture - Final Escherichia Coli Aspirin (Asa -) 81 mg PO DAILY [facility] Last Admin: 11/24/17 10:06 Dose: 81 mg Atorvastatin Calcium (Lipitor -) 80 mg PO HS [facility] Last Admin: 11/23/17 21:34 Dose: 80 mg Assessment- # CVA 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
[2017-11-26] MEDS ORDERED: ASPIRIN 81 MG CHEWABLE TABLETS ONE (10:59)
--- NOTE | 2017-11-26 11:55 | PN ---
Progress Note (short form) - Note Progress Note: PULMONARY/CCM Still with some aphasia. Tolerating PO. Denies headache, nausea or vomiting. Vital Signs Period Temp Pulse Resp BP Sys/Kay Pulse Ox Last 24 Hr 98.0 F-98.7 F 65-78 15-22 125-152/68-94 97 Gen: mild word finding Heart: RRR Lung: decreased breath sounds at the bases Abd: soft, nontender Ext: no edema CBC, BMP 11/25/17 05:40 11/25/17 05:40 Active Medications Aspirin (Ecotrin -) 81 mg PO DAILY [facility] Atorvastatin Calcium (Lipitor -) 80 mg PO HS [facility] Levofloxacin (Levaquin 250 Mg Premixed Ivpb -) 250 mg in 50 mls @ 50 mls/hr IVPB DAILY [facility]; Protocol Stop: 11/30/17 10:44 A/P Acute L MCA CVA s/p tPA UTI HTN - neuro checks - statin - continue antibiotics - PO as tolerated - rehab/PT - telemetry monitoring
[2017-11-26] MEDS: ASPIRIN COATED 81 MG TABLET.EC PO SCH (12:36)
--- NOTE | 2017-11-26 17:52 | CON.CARD ---
Consult Consult Specialty:: cardio - History of Present Illness Chief Complaint: stroke History of Present Illness: 87 male here with new neuro deficits, dx'd large left mca stroke with motor aphasia, mild right sided hemiparesis (see by dr rodriguez, neurology). s/p t-PA on ASA, statin. he remains with aphasia. he does not note any worsening of his neuro sx's. he denies palpitations, cp, sob here or at home PMH: none known (no medical f/u) no cigs - Past Surgical History Past Surgical History: Yes: Joint Replacement - Alcohol/Substance Use Hx Alcohol Use: No - Smoking History Smoking history: Unknown if ever smoked Have you smoked in the past 12 months: No - Social History ADL: Support Services History of Recent Travel: No Home Medications - Allergies Allergies/Adverse Reactions: Allergies Allergy/AdvReac Type Severity Reaction Status Date / Time No Known Allergies Allergy Verified 11/22/17 11:14 - Home Medications Home Medications: Ambulatory Orders Unobtainable 11/22/17 Family Disease History - Family Disease History Family History: Denies (no known cmp) Review of Systems - Review of Systems Constitutional: denies: Chills, Fever Eyes: denies: Eye Pain HENT: denies: Nasal Congestion Neck: denies: Stiffness Cardiovascular: denies: Palpitations Respiratory: denies: Orthopnea, PND Gastrointestinal: denies: Diarrhea, Rectal Bleeding Genitourinary: denies: Burning, Hematuria Musculoskeletal: denies: Muscle Pain Integumentary: denies: Rash Neurological: reports: Change in Speech, Weakness. denies: Numbness, Seizure, Syncope Endocrine: denies: Excessive Sweating Hematology/Lymphatic: denies: Excessive Bleeding Vital Signs: Vital Signs Temperature 98.4 F 11/26/17 14:00 Pulse Rate 78 11/26/17 16:00 Respiratory Rate 22 11/26/17 16:00 Blood Pressure 120/68 11/26/17 16:00 O2 Sat by Pulse Oximetry (%) 97 11/26/17 09:00 Constitutional: Yes: Well Nourished, No Distress Eyes: No: Sclera Icterus HENT: No: Nasal Congestion Neck: No: Decreased ROM Respiratory: Yes: CTA Bilaterally. No: Accessory Muscle Use, Rales, Wheezes Gastrointestinal: Yes: Normal Bowel Sounds. No: Distention, Hepatomegaly, Palpable Mass, Tenderness Cardiovascular: Yes: Regular Rate and Rhythm JVD: No Carotid Bruit: No PMI: Non-Displaced Heart Sounds: Yes: S1, S2. No: Gallop Murmur: No: Systolic Murmur, Diastolic Murmur Musculoskeletal: Yes: Other (No kyphosis) Extremities: No: Cold, Cyanosis Edema: No Peripheral Pulses: 2+ Left Carotid, 2+ Right Carotid, 2+ Left Doralis Pedis, 2+ Right Dorsalis Pedis Integumentary: No: Jaundice Neurological: Yes: Alert. No: Seizure Psychiatric: No: Agitated - Other Data Labs, Other Data: CBC, BMP 11/25/17 05:40 11/25/17 05:40 INR, PTT INR 1.05 (0.82-1.09) 11/23/17 05:30 Laboratory Tests 11/23/17 11/23/17 11/25/17 05:30 05:30 05:40 WBC 6.7 Hgb 13.4 Plt Count 265 Sodium Potassium Carbon Dioxide BUN Creatinine AST ALT Albumin Triglycerides 84 Cholesterol 140 Total LDL Cholesterol 76 HDL Cholesterol 57 TSH 0.61 11/25/17 05:40 WBC Hgb Plt Count Sodium 145 Potassium 4.4 Carbon Dioxide 28 BUN 21 H D Creatinine 1.0 AST 11 L D ALT 12 Albumin 2.9 L Triglycerides Cholesterol Total LDL Cholesterol HDL Cholesterol TSH Assessment/Plan CXR: weak inspiration, ? early RUL infiltrate ECG: NSR with APCs. LVH, left axis. no path q's, no ST-T abnormality (no prior) tele: NSR. 3 x runs SVT (HR 130s-150s)--no offset seen. cannot determine underyling atrial activity carotids: nonobstructive plq bilaterally acute L MCA stroke, ischemic: -s/p tPA -continue aspirin, hi intensity statin as doing -total chol 140 here--will need outpt lipids monitoring and possible downward dose titration of statin later -currently normotensive--bp targets per neuro (permissive HTN) -tele with runs of SVT, cannot delineate underlying atrial activity clearly but could be AT/flutter with 2:1 conduction. -would NOT anticoagulate without definitive evidence of flutter, christelle given risk of hemorrhagic transformation in this setting. -cont tele--if sustained SVT run, rec adenosine with ekg on to evaluate underlying rhythm PSVT: -brief runs -as above: ? SVT vs atach/flutter -cont tele -defer BB for now (to avoid unnecessary and possibly detrimental bp lowering as well) abnormal ECG: -LVH on EKG -? chronic untreated HTN -check echo -currently normotensive
[2017-11-26] MEDS: ATORVASTATIN CA 80 MG TABLET (FP) PO SCH (21:30)
[2017-11-27] MEDS: ASPIRIN COATED 81 MG TABLET.EC PO SCH (09:48)
--- NOTE | 2017-11-27 11:57 | PN ---
Progress Note (short form) - Note Progress Note: patient seen and examined in ICU sitting up in bed follows commands speech improved / short sentences /clear cardiology consult reviewed and appreciated Vital Signs Period Temp Pulse Resp BP Sys/Kay Pulse Ox Last 24 Hr 98.1 F-98.6 F 68-81 15-24 119-157/66-98 96-97 Intake & Output 11/24/17 11/25/17 11/26/17 11/27/17 23:59 23:59 23:59 23:59 Intake Total 1260 240 970 120 Output Total 970 1100 1420 300 Balance 290 -860 -450 -180 Weight 88 lb 6.486 oz 162 lb 1.6 oz face symmetrical speech clear / slow follows SIMPLE COMMAND - / mot oriented to time or place neck supple heart s1/s2v reg lungs clear bilat abd soft non tender ext moves all / FROM / no significant motor deficit CBC, BMP 11/25/17 05:40 11/25/17 05:40 CXR: weak inspiration, ? early RUL infiltrate ECG: NSR with APCs. LVH, left axis. no path q's, no ST-T abnormality (no prior) tele: NSR. 3 x runs SVT (HR 130s-150s)- ct head on was unchanged from 11/22/17 Microbiology 11/22/17 13:15 Urine - Urine - Catheterized Urine Culture - Final Escherichia Coli Active Medications Aspirin (Ecotrin -) 81 mg PO DAILY [facility] Last Admin: 11/27/17 09:48 Dose: 81 mg Atorvastatin Calcium (Lipitor -) 80 mg PO [facility] Last Admin: 11/26/17 21:30 Dose: 80 mg Levofloxacin (Levaquin 250 Mg Premixed Ivpb -) 250 mg in 50 mls @ 50 mls/hr IVPB DAILY [facility]; Protocol Stop: 11/30/17 10:44 Last Admin: 11/27/17 09:48 Dose: 50 mls/hr Assessment- # CVA 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
--- NOTE | 2017-11-27 13:12 | PN ---
Progress Note, [employer]EE[employer] - Note Progress Note: patient seen at bedside. he continues to have difficulty with Content words, beginning his sentence but having difficulty retrieving the important word in the sentence. He is starting to use compensatory techniques that I initiated yesterday such as circumlocution, expressing the function of the word or a different description to assist in the word retrieval and assisting communicating the thought. For instance when he couldnt think of the word restaurant he said you know the place you eat. He is able to read a couple of words on the left side of the sentence but is still not reading more than one or two words per simple phrase. This is definitely affected by his right hemianopsia. he is beginning to confrontation name, with approximately 30% accuracy.Again he s beginning to compensate by describing the word, although he is only able to use the strategy to facilitate word retrieval 20% of the time. With open ended phrases patient was able to retrieve the word well. unfortunately there is no carryover at this time but I believe with intensive speech therapy there will be. he is an excellent rehab candidate. He is fully oriented. Cognitively seems quite intact. Communication deficits are strictly language-based sec to aphasia. excellent prognosis for improvement.
--- NOTE | 2017-11-27 13:57 | PN ---
Progress Note (short form) - Note Progress Note: PULMONARY/CCM Still with some aphasia. Denies headache, nausea or vomiting. Vital Signs Period Temp Pulse Resp BP Sys/Kay Pulse Ox Last 24 Hr 98.1 F-98.6 F 68-81 15-24 119-157/66-98 96-97 Gen: mild word finding Heart: RRR Lung: decreased breath sounds at the bases Abd: soft, nontender Ext: no edema CBC, BMP 11/25/17 05:40 11/25/17 05:40 Active Medications Aspirin (Ecotrin -) 81 mg PO DAILY [facility] Last Admin: 11/27/17 09:48 Dose: 81 mg Atorvastatin Calcium (Lipitor -) 80 mg PO HS [facility] Last Admin: 11/26/17 21:30 Dose: 80 mg Levofloxacin (Levaquin 250 Mg Premixed Ivpb -) 250 mg in 50 mls @ 50 mls/hr IVPB DAILY [facility]; Protocol Stop: 11/30/17 10:44 Last Admin: 11/27/17 09:48 Dose: 50 mls/hr A/P Acute L MCA CVA s/p tPA UTI HTN - neuro checks - ASA, statin - continue antibiotics - PO as tolerated - rehab/PT - telemetry monitoring
--- NOTE | 2017-11-27 20:15 | PN ---
Progress Note (short form) - Note Progress Note: CC: cva S: feels well, still with intermittent difficutly speaking. no cp, palps, sob , dizziness. Current Medications Aspirin (Ecotrin -) 81 mg PO DAILY [facility] Last Admin: 11/27/17 09:48 Dose: 81 mg Atorvastatin Calcium (Lipitor -) 80 mg PO HS [facility] Last Admin: 11/26/17 21:30 Dose: 80 mg Levofloxacin (Levaquin 250 Mg Premixed Ivpb -) 250 mg in 50 mls @ 50 mls/hr IVPB DAILY [facility]; Protocol Stop: 11/30/17 10:44 Last Admin: 11/27/17 09:48 Dose: 50 mls/hr Vital Signs - 24 hr 11/26/17 11/27/17 11/27/17 21:00 00:00 02:00 Temperature 98.4 F 98.1 F Pulse Rate 68 68 Respiratory 15 18 18 Rate Blood Pressure 128/69 125/68 O2 Sat by Pulse 97 Oximetry (%) 11/27/17 11/27/17 11/27/17 04:00 08:00 08:07 Temperature Pulse Rate 72 80 Respiratory 24 18 Rate Blood Pressure 156/68 157/98 O2 Sat by Pulse 96 Oximetry (%) 11/27/17 11/27/17 11/27/17 10:00 13:22 17:00 Temperature 98.4 F Pulse Rate 76 81 78 Respiratory 20 20 22 Rate Blood Pressure 119/66 135/75 122/66 O2 Sat by Pulse Oximetry (%) Intake & Output 11/25/17 11/26/17 11/27/17 11/28/17 07:59 07:59 07:59 07:59 Intake Total 760 480 850 400 Output Total 600 1500 1320 300 Balance 160 -1020 -470 100 Weight 162 lb 1.6 oz nad, calm jvd flat, neck supple ctab, nl effort rrr nl s1, s2 no mrg + bs soft nt nd ext without e/c/c + dp/pt aaox3 no jaundice, diaphorsis. CBC, BMP 11/25/17 05:40 11/25/17 05:40 tele: sr, pvc's. echo 10/2018 tds. nl lv size/fn. tds rwma. rv not well seen. valves not well visualized, no gross ab. CXR: weak inspiration, ? early RUL infiltrate ECG: NSR with APCs. LVH, left axis. no path q's, no ST-T abnormality (no prior) carotids: nonobstructive plq bilaterally acute L MCA stroke, ischemic: -s/p tPA -continue aspirin, hi intensity statin as doing -total chol 140 here--will need outpt lipids monitoring and possible downward dose titration of statin later -currently normotensive--bp targets per neuro (permissive HTN) -tele with runs of SVT, cannot delineate underlying atrial activity clearly but could be AT/flutter with 2:1 conduction. -would NOT anticoagulate without definitive evidence of flutter, christelle given risk of hemorrhagic transformation in this setting. -cont tele--if sustained SVT run, rec adenosine with ekg on to evaluate underlying rhythm PSVT: -brief runs -as above: ? SVT vs atach/flutter -cont tele -defer BB for now (to avoid unnecessary and possibly detrimental bp lowering as well) abnormal ECG: -LVH on EKG ? chronic untreated HTN, con't to monitor -echo tds, but no gross ab. -currently overall normotensive
[2017-11-27] MEDS: ATORVASTATIN CA 80 MG TABLET (FP) PO SCH (21:34)
--- NOTE | 2017-11-28 09:20 | PN ---
Progress Note (short form) - Note Progress Note: 87 y/o male found eating breakfast in Telemetry bed in ICU. Awake and alert x 1. Aware that he is in hosp but hosp name unknown. Vital Signs Period Temp Pulse Resp BP Sys/Kay Pulse Ox Last 24 Hr 97.6 F-98.4 F 66-91 16-25 115-163/66-75 96 CBC, BMP 11/25/17 05:40 11/25/17 05:40 HEENT- NL Neck- Supple Lungs- CTAB Heart-RRR Abd- Pos BS x4, soft, NT Ext- No LE edema. Able to move all 4 extremities. Active Medications Aspirin (Ecotrin -) 81 mg PO DAILY [facility] Last Admin: 11/28/17 09:21 Dose: 81 mg Atorvastatin Calcium (Lipitor -) 80 mg PO HS [facility] Last Admin: 11/27/17 21:34 Dose: 80 mg Levofloxacin (Levaquin 250 Mg Premixed Ivpb -) 250 mg in 50 mls @ 50 mls/hr IVPB DAILY [facility]; Protocol Stop: 11/30/17 10:44 Last Admin: 11/28/17 09:20 Dose: 50 mls/hr Assessment- Plan # CVA MRI showed Lt Occipital Lobe Infarct with Perifocal Edema Right hemiparesis --significant motor improvement s/p TPA 11/22/17 Continue ASA/ High Intensity Lipitor Speech consult appreciated #UTI + e.coli -- Cont Levaquin # HTN trend BP- stable # PSVT SVT not sustained STR- Transfer to [facility] for rehab.
[2017-11-28] MEDS: ASPIRIN COATED 81 MG TABLET.EC PO SCH (09:21)
[2017-11-28 10:47] LABS: EOS % 4.2 % (0-4.5); HEMATOCRIT 43.3 % (35.4-49); HEMOGLOBIN 14.4 GM/dL (11.7-16.9); LYMPH % 27.9 % (8-40); MCH 30.7 pg (25.7-33.7); MCHC 33.3 g/dl (32.0-35.9); MEAN CELL VOLUME 92.1 fl (80-96); MEAN PLT VOLUME 8.8 fl (7.5-11.1); MONO % 4.6 % (3.8-10.2); NEUT % 62.3 % (42.8-82.8); PLATELET COUNT 293 K/MM3 (134-434); RDW 14.7 % (11.9-15.9)
[2017-11-28 11:14] LABS: BLOOD UREA NITROGEN 38 mg/dL (7-18)
[2017-11-28 11:16] LABS: ALBUMIN 3.1 g/dl (3.4-5.0); ANION GAP 3 (8-16); CALCIUM 9.3 mg/dL (8.5-10.1); CHLORIDE 110 mmol/L (98-107); CO2 31 mmol/L (21-32); CREATININE 1.1 mg/dL (0.7-1.3); GLUCOSE,RANDOM 123 mg/dL (74-106); POTASSIUM 5.2 mmol/L (3.5-5.1); SGOT/AST 13 U/L (15-37); SGPT/ALT 18 U/L (12-78); SODIUM 144 mmol/L (136-145)
[2017-11-28 11:17] LABS: ALK PHOS 123 U/L (45-117); BILIRUBIN,TOTAL 0.3 mg/dL (0.2-1.0); TOT PROT 6.2 g/dl (6.4-8.2)
--- NOTE | 2017-11-28 11:28 | DS ---
Physical Examination Vital Signs: Vital Signs Temperature 98 F 11/28/17 08:29 Pulse Rate 82 11/28/17 08:29 Respiratory Rate 18 11/28/17 08:29 Blood Pressure 163/74 11/28/17 08:29 O2 Sat by Pulse Oximetry (%) 96 11/27/17 20:11 Findings/Remarks: 87 year old male was eating at [place] and was found to have aphasia, and right sided hemiparesis around 10.00 am day of admission -- november 22, 2017. The Patient was immediately brought to hospital. He had ct scan which was normal. NIH score as 19, BP 170/90 hr 160s . Patient blood sugar was 173. He had cta of brain which was was unremarkkable. Neurology consult done and upon evaluation - - patient was deemed candidate for TPA. Patient as started on tpa at 11.50 am. Patient had marked motor improvement post tpaTPA, he was left with speech deficit which has continued to improve during hospital stay.. He has remained oriented to person but still unable to orient to place and time -- (Thinks he's 29y/o ) Neurological Examination bp 170/94 on admission -- has remained normotensive on no meds Alert able to follow simple command / oriented to person / speech clear, slow, short sentences, intermittent garbled speech Motor: 4/5 in both upper and lower extremity. on admission right side with complete paralysis / right facial droop / garbled speech repeat ct head done on 11/23 was unchanged from inital CT 11/22/17 MRI -11/25/17 Acute non hemorrhagic infarct left caudate nucleus and in the left occipital lobe with perifocal edema. Extensive ischemic changes white matter of both hemispheres and miriam, sequela from long standing HTN ??, and small vessel atherosclerosis. carotid ultrasound unremarkable telemetry sinus short episodes SVT Assessment- # CVA Large left mca stroke with motor aphasia , right hemiparesis -- significant motor improvement post TPA, s/p TPA 11/22/17 ASA/ Lipitor PT / speech eval #UTI + e.coli -- Sens to levaquin to complete [place] on Saturday11/29/17 # HTN allow permissive HTN -- trend BP Has remained normotensive on no meds Constitutional: Yes: Well Nourished, No Distress, Calm Eyes: Yes: WNL HENT: Yes: WNL. No: Drooling, Hoarseness Neck: Yes: WNL Cardiovascular: Yes: WNL, Regular Rate and Rhythm Respiratory: Yes: WNL, Regular Gastrointestinal: Yes: WNL ...Rectal Exam: Yes: Deferred Renal/: Yes: WNL Breast(s): Yes: WNL Musculoskeletal: Yes: WNL Extremities: Yes: WNL Edema: No Peripheral Pulses WNL: Yes Integumentary: Yes: WNL Neurological: Yes: Alert, Oriented (only to person), Aphasia ...Motor Strength: WNL Psychiatric: Yes: Alert Labs: CBC, BMP 11/28/17 09:50 11/28/17 09:50 Discharge Summary Reason For Visit: CVA Current Active Problems Cerebrovascular accident (CVA) (Acute) Condition: Improved - Instructions Disposition: CARE HOME FACILITY - Home Medications Comprehensive Discharge Medication List: Ambulatory Orders Aspirin Coated [Ecotrin -] 81 mg PO DAILY 30 Days #30 tablet.ec 11/28/17 Atorvastatin Ca [Lipitor] 80 mg PO HS 30 Days #30 tablet 11/28/17 Levofloxacin [Levaquin] 250 mg PO DAILY 2 Days #2 tablet 11/28/17
[2017-11-28 13:12] VITALS: BP 122/68; PULSE 80; TEMP 98.2
--- NOTE | 2017-11-28 13:18 | PN ---
Progress Note (short form) - Note Progress Note: PULMONARY/CCM Still with some expressive aphasia. Denies headache, nausea or vomiting. Vital Signs Period Temp Pulse Resp BP Sys/Kay Pulse Ox Last 24 Hr 97.6 F-98.4 F 66-91 16-25 115-163/66-75 96 Intake & Output 11/25/17 11/26/17 11/27/17 11/28/17 23:59 23:59 23:59 23:59 Intake Total 240 970 520 100 Output Total 1100 1420 1000 200 Balance -860 -450 -480 -100 Weight 73.527 kg 35.579 kg Gen: mild word finding Heart: RRR Lung: decreased breath sounds at the bases Abd: soft, nontender Ext: no edema CBC, BMP 11/28/17 09:50 11/28/17 09:50 Active Medications Aspirin (Ecotrin -) 81 mg PO DAILY [facility] Last Admin: 11/28/17 09:21 Dose: 81 mg Atorvastatin Calcium (Lipitor -) 80 mg PO HS [facility] Last Admin: 11/27/17 21:34 Dose: 80 mg Levofloxacin (Levaquin 250 Mg Premixed Ivpb -) 250 mg in 50 mls @ 50 mls/hr IVPB DAILY [facility]; Protocol Stop: 11/30/17 10:44 Last Admin: 11/28/17 09:20 Dose: 50 mls/hr A/P Acute L MCA CVA s/p tPA UTI HTN - ASA, statin - complete antibiotics - PO as tolerated - for [facility]
== END 2017-11-28 15:18 | DRG 61 ==
LOC: JER 10:48 → JERBED 12:29 → JICU 15:26 → J2W 11-24 18:27
PROVIDERS: ADMIT Family Medicine; ATTEND Family Medicine
DX: I63.9 Cerebral infarction, unspecified (principal); G93.6 Cerebral edema; J98.11 Atelectasis; G81.91 Hemiplegia, unspecified affecting right dominant side; N39.0 Urinary tract infection, site not specified; I47.1 Supraventricular tachycardia; B96.29 Other Escherichia coli [E. coli] as the cause of diseases classified elsewhere; R47.81 Slurred speech; R47.01 Aphasia; R29.719 NIHSS score 19; I10 Essential (primary) hypertension; Z95.0 Presence of cardiac pacemaker
CPT/HCPCS: 36415; 70450-TC; 70496-TC; 70551-TC; 71045-TC-FY; 80048; 80053; 80061; 81003; 81015; 82465; 82550; 83036; 83718; 83721; 83735; 84100; 84443; 84478; 84484; 85025; 85027; 85610; 86850; 86900; 86901; 87086; 87186; 93005; 93010; 93306-TC; 93880-TC; 97116-GP; 97161-GP; 99285-25; J2997; J7030